=== PATIENT | female | born 1935 | race Caucasian/White ===

== ENCOUNTER 2017-09-06 20:03 | Inpatient (IN) | payer MEDICARE ==
[2017-09-06] MEDS ORDERED: Acetaminophen 500 MG TAB ONE (22:38)
--- NOTE | 2017-09-06 23:14 | CT ---
ABDOMEN AND PELVIC CT SCAN WITHOUT IV CONTRAST LUMBAR SPINE CT SCAN WITHOUT IV CONTRAST LIMITED: 09/06/17 HISTORY: 82-year-old female with history of right sided chest pain and right upper quadrant pain after a fall. Patient did have chest CT scan with IV contrast several hours ago. The lung bases are clear. The liver, gallbladder, and pancreas are unremarkable. The spleen has a peña ewhat globular appearance with some lobulation and small splenules, nonspecific but certainly not any acute process. Adrenal glands are unremarkable. There is some contrast media within nondilated right and left renal collecting system and ureters. Right renal cyst. No evidence for free intraperitoneal fluid or retroperitoneal hematoma. There appears to be a small hiatal hernia. IMPRESSION: No significant acute posttraumatic process in the abdomen. Somewhat nodular lobulated appearing splee n. Certainly not related to any acute process. Small right renal cyst. LUMBAR SPINE CT SCAN WITHOUT IV CONTRAST LIMITED: Very heterogeneous bone demineralization. Mild vertical height loss of the superior end plate of L1 w hich has more of an old appearance. 0.5 cm anterolisthesis of L4 on L5. Severe generalized spondylosi s. Dense areas of ossification in the S2 vertebra probably related to a large bone island. IMPRESSION: Bone demineralization. Minimal vertical height loss of L1 vertebral body. Anterolisthesis of L4 on L5 . Canal, lateral recess, and foraminal stenosis at L4-L5 with mild canal stenosis at L3-L4. If there is strong clinical concern that the L1 fracture is acute, a followup nonemergent MRI study w ould be of help in distinguishing that possibility. POS: [facility]
[2017-09-06] MEDS ORDERED: traMADol HCl 50 MG TAB PO PRN (23:19)
[2017-09-06] MEDS ORDERED: Ondansetron ODT 4 MG TAB PO PRN (23:19)
[2017-09-06] MEDS ORDERED: Dextrose 50% Abboject 50 ML SYRINGE SLOW IVP PRN (23:19)
[2017-09-06] MEDS ORDERED: hydrALAZINE 20 MG/ML VIAL SLOW IVP PRN (23:19)
[2017-09-06] MEDS ORDERED: Dextrose 5% in Water 1,000 ML IV PRN (23:19)
[2017-09-06] MEDS ORDERED: Ondansetron HCl/PF 4 MG/2 ML Vial IVP PRN (23:19)
[2017-09-06] MEDS ORDERED: Sodium Chloride 0.9% 1,000 ML IV SCH (23:30)
[2017-09-07] MEDS: Acetaminophen 500 MG TAB PO SCH ×5 (01:20→23:55)
[2017-09-07 01:52] VITALS: BMI 19.4
[2017-09-07 04:02] LABS: Bilirubin Negative (Negative); Blood, Urine Negative (Negative); Clarity CLEAR (Clear); Glucose, Urine (Dipstick) Negative (Negative); Leukocyte Negative (Negative); Nitrite Negative (Negative); Protein, Urine (Dipstick) Negative (Neg-Trace); Specific Gravity, Urine 1.014 (1.002-1.036); Urobilinogen 0.2 mg/dL (0.2-1.0); pH, Urine 7.5 (5.0-9.0)
[2017-09-07 04:39] LABS: #Eosinphils 0.1 thou/uL (0.0-0.7); #Lymphocytes 1.8 thou/uL (1.20-3.40); #Monocytes 0.9 thou/uL (0.11-0.59); %Basophils 0.1 % (0.0-1.0); %Eosinophils 0.6 % (0.0-10.0); %Lymphocytes 18.6 % (21.0-51.0); %Monocytes 9.4 % (0.0-10.0); %Neutrophils 71.3 % (42.0-75.0); Mean Corpuscular Hemoglobin 27.7 pg (27.0-31.0); Mean Corpuscular Volume 89.2 fl (81.0-99.0); Mean Platelet Volume 7.7 fL (7.4-10.4); Platelet Count 300 thou/uL (130-400); RBC Distribution Width 14.8 % (11.5-14.5); Red Blood Cell (RBC) Count 4.71 mill/uL (4.20-5.40); White Blood Cell (WBC) Count 9.8 thou/uL (4.8-10.8)
[2017-09-07 04:45] LABS: Anion Gap 12 mmol/L (10-20); BUN (Urea Nitrogen) 7 mg/dL (9.8-20.1); Calc. Creatinine Clearance 55 mL/min (70-130); Calcium 9.3 mg/dL (7.8-10.44); Carbon Dioxide 30 mmol/L (23-31); Chloride 102 mmol/L (98-107); Estimated GFR-MDRD Greater than 90; Glucose 97 mg/dL (83-110); Magnesium 2.1 mg/dL (1.6-2.6); Phosphorus 3.5 mg/dL (2.3-4.7); Potassium 3.6 mmol/L (3.5-5.1); Sodium 140 mmol/L (136-145)
--- NOTE | 2017-09-07 06:14 | HP ---
DATE OF ADMISSION: 09/06/2017 ATTENDING PHYSICIAN: Dr. Hubert Sanchez. TRAUMA ACTIVATION: Not applicable. HISTORY OF PRESENT ILLNESS: This is an 82-year-old female who presented to [place] ER as a transf er from [facility], status post fall. Patient has a history of significant dementia. There is no family at bedside. All history has been obtained through discussion with ER physician and records review. Per documentation, patient had an unwitnessed fall earlier today. She was evaluated in [facility] and found to have a possible small frontal hematoma. The patient was transferred to [facility]. Neurosurgery was notified and Trauma Services was asked to admit. Per ER ph ysician, the reportedly found the patient on the couch with blood coming from her right cheek after leaving her unattended. She is alert and oriented x2 at baseline and is at baseline per ER re cords. Upon my evaluation, the patient has a chief complaint of right-sided rib discomfort, but othe rwise vocalizes no other complaint. PAST MEDICAL HISTORY: ALLERGIES: SULFA. HOME MEDICATIONS: Include Lyrica 100 mg p.o. b.i.d., vitamin E supplementation, prednisone 5 mg p.o. daily, [place] 5/325 one 1-2 tabs q.6 hours p.r.n., simvastatin 40 mg p.o. daily, citalopram 20 mg p.o . daily, calcium supplementation 600 mg p.o. b.i.d., vitamin D3 daily, Sinemet 25/250 one tab p.o. b. i.d. PAST MEDICAL HISTORY: Includes history of hyperlipidemia, hypertension, arthritis, osteoporosis, pos sibly Parkinson's disease. There is question of possible history of seizure disorder and peripheral vascular disease. PAST SURGICAL HISTORY: Hysterectomy, tonsillectomy, and right endarterectomy. SOCIAL HISTORY: Patient lives at home with , has a history of frequent falls. Reportedly den ies alcohol or illicit drug use. She is a former smoker. FAMILY HISTORY: Unobtainable. REVIEW OF SYSTEMS: Unobtainable. PHYSICAL EXAMINATION: VITAL SIGNS: On evaluation include blood pressure 164/80, heart rate 84, O2 sat 95% on 2 liters nasa l cannula, temperature is 98.6. GENERAL: Well-developed elderly appearing female, in no acute distress, resting in bed. HEAD: Right-sided facial laceration that has been repaired. There is ecchymosis around the right ey e and extends down the right cheek. EYES: Pupils are PERRL. Extraocular movements are intact. NECK: Supple. Trachea is midline. CHEST/PULMONARY: Appears atraumatic. There is minimal tenderness to the right lower ribcage with pa lpation. Normal work of breathing, symmetric chest rise. LUNGS: Clear to auscultation bilaterally. CARDIOVASCULAR: Regular rate and rhythm. No obvious murmurs, rubs, or gallops. GASTROINTESTINAL: Soft, nontender, nondistended. Bowel sounds are positive. BACK: Reported as being within normal limits. MUSCULOSKELETAL: Bilateral upper extremities within normal limits. Right knee ecchymosis was noted with abrasion over the left mid lower leg. NEUROLOGIC: GCS is 14 secondary to confusion. She is alert and oriented to person and place only. There is no focal deficit noted. SKIN: There are scattered areas of ecchymosis in different stages of healing. LABORATORY FINDINGS: WBC 12.9, hemoglobin 13.3, hematocrit 42.6, platelet count 284. INR is 1.0. S odium 138, potassium 4.3, chloride 98, carbon dioxide 28, BUN 11, creatinine 0.61, glucose 129, AST 1 1, ALT 6, total bilirubin 0.7. RADIOGRAPHIC FINDINGS: CT of the abdomen and pelvis read by Radiology is demonstrating bone deminera lization with some vertical height loss of the L1 vertebral body, anterolisthesis of L4 and L5 with c anal lateral recess and foraminal stenosis at L4-L5 and mild canal stenosis at L3-L4. There were no acute post-traumatic processes noted in the abdomen per radiology. CT of the chest was without acute traumatic injury. Per radiology read, CT of the C-spine without any acute fracture dislocation, but did demonstrate degenerative changes per radiology. CT of the face was without acute bony fracture. X-ray of the right knee showed right knee effusion, but no degenerative changes. CT of the brain w ith possible mild cortical contusion in the anterior frontal lobe cortex. ASSESSMENT: 1. Status post unwitnessed fall. 2. Frontal lobe contusion. 3. Acute traumatic pain. 4. Hypertension. 5. Dementia. 6. Frequent falls. 7. Facial laceration. PLAN: 1. Admit to trauma services. The patient should have frequent neuro checks. Repeat CT scan per dis cussion with Neurosurgery in the morning. Clear liquid diet for now. PT and OT for mobility. Since the patient has a history of frequent falls, may benefit from inpatient rehabilitation at discharge. 2. Deep venous thrombosis and gastritis prophylaxis as appropriate. Oral analgesics. Trauma attend ing has been notified of admission at the time of this dictation.
--- NOTE | 2017-09-07 07:29 | PRG ---
DATE OF SERVICE: 09/07/2017 I personally interviewed and examined the patient and agree with documentation of aida Albert PA-C 09/06/2017. Briefly, Alena Richardson is an 82-year-old woman found down yesterday and does not remember the fal l at all. She was brought to our emergency department where CT examination of the brain revealed a t iny right frontal parenchymal contusion without mass effect. She was admitted for [facility]. This morning I am seeing her and she has ecchymosis over the entire right side of her face. Sh e is awake. She is alert. She remembers the events before the fall. She does not remember the even ts of the fall at all. Her cranial nerves are working well. There is no lateralizing motor or senso ry deficits and her cerebellar exam is normal. I reviewed CT imaging of the brain and the contusion is less dense this morning than it was yesterday. It seems to be resolving. There is no mass effect or midline shift. She does not require neurosurgical intervention. Once Ms. Richardson is deemed safe for activities of daily living and is ready for discharge and we w ill follow her up as an outpatient in the office in 2-[address] weeks with [address] scan. It is unclear wh ether this was a cardiac event or the head trauma itself that erased memory of it. Please call our team back if we can provide more information.
--- NOTE | 2017-09-07 07:32 | PRG ---
DATE OF SERVICE: 09/07/2017 Ms. Richardson is an 82-year-old female who presented yesterday after a fall. She has ecchymosis ove r the right periorbital region and right side of her face. She is complaining of left shoulder pain this morning. Repeat CT scan was done of the right frontal contusion and has not blossomed and is st able. Her vital signs overnight have been stable and there is no new neurologic deficit on exam. Fr om a neurologic status Ms. Richardson is stable. If there are any further questions, please feel free to contact Neurosurgery. She likely will need a gait assessment by physical therapy before she leaves and possible rehab placement.
[2017-09-07] MEDS: Famotidine 20 MG TAB PO SCH ×2 (08:44→20:26)
[2017-09-07] MEDS: Senokot S 8.6-50 MG TAB PO SCH ×2 (08:44→20:24)
[2017-09-07] MEDS ORDERED: Prevnar 13-Val Conj/PF 0.5 ML SYRINGE IM ONE (09:00)
--- NOTE | 2017-09-07 09:20 | CT ---
PRELIMINARY REPORT/[facility]/EMERGENTY AFTER-HOURS PROCEDURE CT Head Without Intravenous Contrast CLINICAL HISTORY: The patient is a 82 years female; Condition or disease; Other: Contusion; Patient HX: F/u frontal con tusion Examination order is timed 09/07/2017 4:58 AM. TECHNIQUE: Axial computed tomography images of the head/brain without intravenous contrast. COMPARISON: Report from an outside head CT 09/06/2017. FINDINGS: BRAIN: There is small 6.5 mm right paramedian frontal parenchymal hemorrhage. There is a small amount of increased density in several sulci in the frontal and parieto-occipital regions suggesting small amount of acute subarachnoid hemorrhage. Lucency through the white matter compatible with mild microvascular change. No mass effect or midline shift. VENTRICLES: Unremarkable as visualized. No ventriculomegaly. BONES/JOINTS: No acute fracture. SOFT TISSUES: There is right lateral orbital and temporal soft tissue swelling and laceration with ai r. There is left superior lateral parietal scalp soft tissue swelling. SINUSES: Unremarkable as visualized. No acute sinusitis. MASTOID AIR CELLS: Unremarkable as visualized. No mastoid effusion. IMPRESSION: Small right frontal hemorrhagic contusion. Small amount of right subarachnoid hemorrhage. Thank you for allowing us to participate in the care of your patient. Dictated and Authenticated by: Tiffani Anaya MD 09/07/2017 6:33 AM Central Time ([place] & [place]) FINAL REPORT EMERGENCY AFTER HOURS CT HEAD NONCONTRAST: Date: 09/07/17 Time: 0459 hours HISTORY: Trauma. Intracranial hemorrhage. Follow-up. COMPARISON: 09/06/17. FINDINGS: Findings agree with the preliminary report by [facility]. Small contusion right frontal lobe medial anterio r at the poole-white junction is stable compared to the previous exam. Injury of the right lateral fac e is again demonstrated, now with a small amount of subcutaneous gas POS: [facility]
--- NOTE | 2017-09-07 11:08 | CON ---
DATE OF CONSULTATION: 09/06/2017 HISTORY OF PRESENT ILLNESS: Ms. Richardson is an 82-year-old female who I saw in her ER room this ev ening. She has been having frequent falls, lately today she had a fall, the head which resulted in r ight-sided facial and head injuries. She also has rib pain, right knee pain after a fall today. The fall was unwitnessed and the patient does not recall the events of the fall. She is not on any bloo d thinner. She has a laceration of the right lateral face with matted blood in the hair on the right temporal scalp. Neurosurgery was consulted after a CT of the head was obtained that showed a right frontal contusion. ALLERGIES: SULFA DRUGS. PAST MEDICAL HISTORY: Includes tetanus up to date cholesterol, musculoskeletal disorder, osteoarthri tis, Parkinson's disease, and right carotid artery stenosis as well as GERD. PAST SURGICAL HISTORY: Includes hysterectomy, tonsillectomy, right endarterectomy. PSYCHIATRIC HISTORY: Includes depression. SOCIAL HISTORY: Includes former tobacco user, smoked cigarettes, quit 15 to 20 years ago. Lives wit h family at home. CURRENT MEDICATIONS: 1. Taking Lyrica 100 mg twice a day. 2. Vitamin E 400 mg once a day. 3. Prednisolone 5 mg oral once a day. 4. [place] 5/325 oral q. 6 hours p.r.n. 5. Simvastatin 40 mg oral once a day. 6. Citalopram 20 mg oral once a day. 7. Calcium 150 mg oral 2 times a day. 8. Vitamin D3 400 unit. 9. Sinemet 25-225 mg oral 3 times a day, twice a day once in the evening. PHYSICAL EXAMINATION: VITAL SIGNS: On presentation 169/80, pulse 84, respirations 19, pain 8, O2 sat 93% on room air. HEENT: Right side has a right scalp laceration over the eyebrow. She is awake, responsive to my que stions. She has a 3 cm gap laceration over the right lateral cheek with surrounding ecchymosis. She has right periorbital ecchymosis. Cancino sign is negative. stable. EYES: Pupils are equal, round, and reactive to light. Extraocular muscles are intact. Sclerae is w miri, nonicteric. NECK: She has tenderness at the level of C1 and level of C2. No abrasions, no contusions. RESPIRATORY: Patient has had tenderness to moderate to right anterior chest and left lateral chest, to the right lateral chest. No crepitus. Breath sounds are equal with breast rise is symmetric. CARDIOVASCULAR: The patient has regular rate and rhythm, normal S1, S2 heart sounds. EXTREMITIES: No distal cyanosis or clubbing noted. Lower extremities: Patient has mild tenderness diffusely over the right knee and swelling, ecchymosis, crepitus. Range of motion is decreased, reso lving ecchymosis over the left lateral hip without significant tenderness. Abrasions over the anteri or aspect of the left mid lower leg. No associated bony tenderness. Lower extremity exam is otherwi se negative for acute injury. SKIN: The patient has a poole turgor and is pale. NEUROLOGIC: Cranial nerves II-XII are grossly intact. Speech is fluent. She has my questions appro priately. She is GCS of 15. There are no focal motor or sensory deficits. IMAGING: Head CT imaging shows subtle right frontal contusion. No skull fracture. ASSESSMENT: Ms. Alena Richardson is an 82-year-old female that presents with a right frontal contus ion. PLAN: We have repeat CT scan of the brain in the morning and make sure that the bleed is not blossom ing. We will keep her head at 30 degrees tonight, we will watch her overnight to make sure that her neurologic status does not decrease.
--- NOTE | 2017-09-07 11:23 | PRG ---
DATE OF SERVICE: 09/07/2017 ATTENDING PHYSICIAN: Dr. Getachew Babb SUBJECTIVE: Ms. Richardson is an 82-year-old female who was admitted last p.m. as a transfer from [facility] status post fall. She was evaluated in the ER, a frontal lobe contusion was identified. She was admitted to the [facility] by Trauma Services. Dr. Al, Neurosurgery, was consulted. He did not recommend neurosurgical intervention. Dr. Al saw Ms. Richardson again this morning. Her CT scan has remained stable. Her vital signs have been stable. There are no neurologic deficits. Neurosurgery has plans to follow up as outpatient. OBJECTIVE: VITAL SIGNS: Temperature 98.1, pulse 79, respirations 19, O2 sat 95% on 2 liters nasal cannula, blood pressure 135/88. GENERAL: Elderly female lying in bed in no acute distress. HEENT: Extensive ecchymosis to the right face and periorbital area. Right lateral eyebrow and temporal area laceration closed with sutures. Pupils equal , round, reactive to light. CARDIOVASCULAR: Regular rate and rhythm. Heart sounds normal. CHEST: Lungs clear to auscultation bilaterally. Symmetrical movement of chest wall. ABDOMEN: Soft, nontender, nondistended. Bowel sounds are present. MUSCULOSKELETAL: Multiple areas of ecchymosis noted over arms and legs. No active bleeding. No pain with movement. NEUROLOGIC: GCS 15. Alert and oriented x3. ASSESSMENT: 1. Status post unwitnessed fall, multiple recent falls. 2. Frontal lobe contusion. 3. History of dementia. 4. History of hypertension present on admission. 5. Facial laceration, closed by ER. PLAN: 1. Neurosurgery has recommended no neurosurgical intervention. They will follow the patient as outpatient. 2. Transfer up to floor. 3. Rehab referral. 4. Case management consult for discharge planning. 5. SCDs for DVT prophylaxis. 6. Pepcid for gastritis prophylaxis. 7. Dietary recommends heart healthy diet with Ensure Enlive b.i.d. This has been ordered. 8. PT, OT consult. 9. Local wound care with bacitracin. The patient was reviewed with Dr. Babb who agrees with the plan. [facility]
[2017-09-07] MEDS ORDERED: Melatonin 3 MG TAB PO PRN (18:38)
[2017-09-07] MEDS: Carbidopa/Levodopa CR 50-200 mg Tablet PO SCH (20:24)
[2017-09-07] MEDS: Pregabalin 50 MG CAP PO SCH (20:25)
[2017-09-07] MEDS: Calcium Carbonate 600 MG TAB PO SCH (20:26)
[2017-09-08] MEDS: Acetaminophen 500 MG TAB PO SCH ×2 (05:29→13:02)
[2017-09-08] MEDS ORDERED: predniSONE 5 MG TAB PO SCH (08:00)
[2017-09-08] MEDS ORDERED: Ascorbic Acid 500 mg Chewable Tablet PO SCH (09:00)
[2017-09-08] MEDS ORDERED: DULoxetine 60 MG CAP PO SCH (09:00)
[2017-09-08] MEDS: Calcium Carbonate 600 MG TAB PO SCH (09:43)
[2017-09-08] MEDS: Carbidopa/Levodopa CR 50-200 mg Tablet PO SCH ×2 (09:43→14:53)
[2017-09-08] MEDS: Senokot S 8.6-50 MG TAB PO SCH (09:44)
[2017-09-08] MEDS: Pregabalin 50 MG CAP PO SCH (09:44)
[2017-09-08] MEDS: Famotidine 20 MG TAB PO SCH (09:44)
--- NOTE | 2017-09-08 12:55 | PRG ---
DATE OF SERVICE: 09/08/2017 ATTENDING PHYSICIAN: Dr. Getachew Babb. SUBJECTIVE: Ms. Richardson is an 82-year-old female, who was admitted 2 days ago as a transfer from [facility] status post fall. She was evaluated in the ER where frontal lobe contusion was identified. She was admitted to the hospital by Trauma Services. A neurosurgical consult was obtained. Neurosurgery did not recommend any neurosurgical intervention. Neurosurgery has signed off and will follow her as an outpatient. She is now stable on the stroke unit. She is mobilizing with physical and occupational therapy. Case management has been consulted for discharge planning. Plans at this point are to discharge to rehab. Apparently, last night in the evening, she had episode of confusion. She is GCS 15 on exam this morning. OBJECTIVE: VITAL SIGNS: Temperature 97.7, pulse 86, respirations 18, O2 sat 97% room air, and blood pressure 144/75. GENERAL: Elderly female lying in bed in no acute distress. HEENT: Extensive ecchymosis over the right face and periorbital area. Right lateral eyebrow and temporal area laceration closed with sutures. No evidence of infection. Pupils equal, round, reactive to light. CARDIOVASCULAR: Regular rate and rhythm. Heart sounds normal. CHEST: Lungs clear to auscultation bilaterally. No respiratory distress. ABDOMEN: Soft, nontender, nondistended. Bowel sounds are present. MUSCULOSKELETAL: Multiple areas of ecchymosis and contusions noted over arms and legs in various stages of healing. No active bleeding. No pain with movement. NEUROLOGIC: GCS 15. Awake, alert, and oriented x3. ASSESSMENT: 1. Status post unwitnessed fall, multiple recent falls. 2. Frontal lobe contusion. Seen by Neurosurgery. Neurosurgery to follow up as outpatient. 3. History of dementia. 4. History of hypertension, present on admission. 5. Facial laceration closed by ER. PLAN: 1. Followup with Neurosurgery in 2-3 weeks. 2. Mobilize with physical and occupational therapy. 3. Case management consult for discharge planning. Anticipate patient will discharge to rehabilitation. 4. Local wound care. 5. Continue home medications. 6. Sequential compression devices for deep venous thrombosis prophylaxis. 7. Pepcid for gastritis prophylaxis. Patient was reviewed with Dr. Babb, who agrees with plan. [facility]
[2017-09-08 15:39] VITALS: BP 90/49; TEMP 97.5
--- NOTE | 2017-09-09 01:18 | DIS ---
DATE OF ADMISSION: 09/06/2017 DATE OF DISCHARGE: 09/08/2017 ADMITTING PHYSICIAN: Dr. Hubert Sanchez. DISCHARGING PHYSICIAN: Dr. Getachew Babb. CONSULTING PHYSICIAN: Dr. Al, neurosurgery. REASON FOR HOSPITALIZATION: Ground level fall with traumatic brain injury. HOSPITAL DIAGNOSES: 1. Status post ground level fall. 2. Right facial contusion. 3. Right temporal laceration closed in the ER. 4. Right frontal parenchymal contusion without mass effect. PROCEDURES: Suture of laceration in ER. DISCHARGE CONDITION: Good. DISPOSITION: Discharged to home. DISCHARGE MEDICATIONS: The patient may resume home medications except for aspirin, which will be held until cleared by Neurosurgery. ACTIVITY: As tolerated with home health therapy. Home health ordered for physical therapy and long term. PLANS FOR FOLLOWUP: The patient is to follow up with primary care provider in 1 week. The patient is to follow up with Dr. Al in 2-3 weeks. BRIEF HISTORY OF HOSPITALIZATION: Ms. Richardson is an 82-year-old female who had a ground level fall at home. This was unwitnessed. She has had multiple ground level falls. She and her report that due to her shuffling gait that her feet often get tangled up and she falls to the ground. She was transferred from an outside facility to the [facility] where she was identified to have a right frontal parenchymal contusion. She was admitted to the hospital by Trauma Services. Dr. Al, neurosurgery, was consulted. She remained neurologically intact. She remained hemodynamically stable. Neurosurgery did not recommend neurosurgical intervention and cleared her for discharge. They recommend follow up in 2-3 weeks as outpatient. She was evaluated by physical and occupational therapy, who recommended home with assistance and home health care. Case management was consulted for discharge planning. Home health care was arranged. On the day of discharge, extensive conversation was had by case management with family who did not want her to go to a facility for rehabilitation or long term. She also wished to go home with family and refused placement. She was discharged home with her . She will follow up with her primary care provider. The patient was reviewed with Dr. Babb who agrees with plan. [facility]
== END 2017-09-08 17:06 | disposition home or self-care (01) | DRG 84 ==
LOC: ERS 20:03 → IMCU/EMU 23:10 → 2SE 09-07 11:35
PROVIDERS: ADMIT Surgery; ATTEND Surgery
DX: S06.319A Contusion and laceration of right cerebrum with loss of consciousness of unspecified duration, initial encounter (principal); G20 Parkinson's disease; F03.90 Unspecified dementia, unspecified severity, without behavioral disturbance, psychotic disturbance, mood disturbance, and anxiety; G89.11 Acute pain due to trauma; I10 Essential (primary) hypertension; K21.9 Gastro-esophageal reflux disease without esophagitis; E78.5 Hyperlipidemia, unspecified; R40.2362 Coma scale, best motor response, obeys commands, at arrival to emergency department; R40.2142 Coma scale, eyes open, spontaneous, at arrival to emergency department; R40.2252 Coma scale, best verbal response, oriented, at arrival to emergency department; M19.90 Unspecified osteoarthritis, unspecified site; M81.0 Age-related osteoporosis without current pathological fracture; R29.6 Repeated falls; Z88.2 Allergy status to sulfonamides; Z79.899 Other long term (current) drug therapy; Z87.891 Personal history of nicotine dependence; Z79.52 Long term (current) use of systemic steroids; W07.XXXA Fall from chair, initial encounter; Y92.018 Other place in single-family (private) house as the place of occurrence of the external cause
CPT/HCPCS: 36415; 70450; 74176; 80048; 81003; 83735; 84100; 85025; G0390; G8978-GP-CJ; G8979-GP-CI; G8987-GO-CJ; G8988-GO-CI; J0360